=== PATIENT | male | born 1990 | race Caucasian/White ===

== ENCOUNTER 2017-09-13 00:34 | Emergency (ER) | payer SELFPAY ==
[~2017-09-13 00:34] MED LIST: AMOXICILLIN500 MG OR; ATIVAN0.5 MG PO; CLARITIN10 MG OR; CORTISPORIN OTI10 ML AS; KEFLEX500 MG OR; LORTAB 5 OR; NO HOME MEDS; NO MEDS; TORADOL OR; TRAMADOL HCL50 MG OR
== END 2017-09-13 00:55 | disposition left against medical advice (07) | DRG 951 ==
LOC: ED 00:34 → LWOBS 00:55
DX: Z91.19 Patient's noncompliance with other medical treatment and regimen (principal)

== ENCOUNTER 2018-12-26 11:37 | Emergency (ER) | payer SELFPAY ==
[~2018-12-26] VITALS: Ht 182.9 cm; Wt 80.0 kg
[2018-12-26 12:12] LABS: HEMATOCRIT 45.2 % (39.0-50.0); HEMOGLOBIN 15.1 g/dl (14.0-18.0); IMMATURE GRANULOCYTES 0.3 % (0.0-5.0); MEAN CELL VOLUME 89.3 fL CALC (80.0-100.0); MEAN CORPUSCULAR HGB 29.8 pG CALC (26.0-32.0); MEAN CORPUSCULAR HGB CONC 33.4 g/L CALC (32.0-36.0); NEUT# 6.94 thou/uL (1.82-7.42); RED BLOOD COUNT 5.06 mill/uL (4.70-6.10)
[2018-12-26 12:26] LABS: BARBITURATES NEGATIVE (NEGATIVE); COCAINE NEGATIVE (NEGATIVE); METHADONE NEGATIVE (NEGATIVE); OXCYCODONE NEGATIVE (NEGATIVE); TETRAHYDROCANNABIONOL NEGATIVE (NEGATIVE); TRICYLIC ANTIDEPRESSANTS NEGATIVE (NEGATIVE)
[2018-12-26 12:26] LABS: ALBUMIN 5.1 g/dL (3.2-5.0); ALKALINE PHOSPHATASE 82 u/l (38-126); ANION GAP 20 (6-22 (CALC)); BILIRUBIN, TOTAL 0.9 mg/dL (0.0-1.4); BUN 17 mg/dL (9-20); BUN/CREATININE RATIO 17 (12-20 (CALC)); CARBON DIOXIDE 24 mmol/l (22-30); CHLORIDE 104 mmol/l (95-108); CPK 277 u/l (52-200); ETHYL ALCOHOL 0 mg/dl (0-30); GFR > 60 ML/MIN (>=60 (CALC)); GFR FOR AFR.AMER. > 60 ML/MIN (>=60 (CALC)); POTASSIUM 4.3 mmol/l (3.5-5.1); SGOT/AST 28 u/l (17-59); SODIUM 143 mmol/l (137-146); TOTAL PROTEIN 8.6 g/dL (6.3-8.2)
[2018-12-26 15:30] VITALS: BP 125/82
== END 2018-12-26 15:35 | DRG 897 ==
LOC: ED 11:37
PROVIDERS: Emergency Medicine
DX: F15.90 Other stimulant use, unspecified, uncomplicated (principal); F19.90 Other psychoactive substance use, unspecified, uncomplicated; F17.200 Nicotine dependence, unspecified, uncomplicated; R00.0 Tachycardia, unspecified
CPT/HCPCS: J2060; S0164

== ENCOUNTER 2019-09-14 08:25 | Emergency (ER) | payer SELFPAY ==
[~2019-09-14] VITALS: Ht 182.9 cm; Wt 63.6 kg
[2019-09-14] MEDS ORDERED: TRAMADOL HYDROC50 MG PO (09:57)
[2019-09-14] MEDS ORDERED: KEFLEX500 MG PO (09:57)
[2019-09-14 10:21] VITALS: BP 149/93
== END 2019-09-14 10:30 | disposition home or self-care (01) | DRG 605 ==
LOC: ED 08:25
PROC: 0HQKXZZ Repair Right Lower Leg Skin, External Approach (ICD-10-PCS; principal; 2019-09-14)
DX: S81.011A Laceration without foreign body, right knee, initial encounter (principal); I10 Essential (primary) hypertension; F17.200 Nicotine dependence, unspecified, uncomplicated; W01.0XXA Fall on same level from slipping, tripping and stumbling without subsequent striking against object, initial encounter; Y92.89 Other specified places as the place of occurrence of the external cause